=== PATIENT | male | born 1990 | race Caucasian/White ===

== ENCOUNTER 2019-06-21 15:24 | Emergency (ER) | payer OTHER, SELFPAY ==
[2019-06-21 15:26] VITALS: BP 138/97; PULSE 119; RESP 14; TEMP 36.7; O2SAT 99
--- NOTE | 2019-06-21 15:38 | ED.GENADUL_ITS ---
Discharge Plan Disposition Patient Disposition: HOME Discharge Details Chief Complaint: Orthopedic Clinical Impression: Finger fracture, left, Closed dislocation finger, proximal interphalangeal joint, traumatic Primary Care Provider: None,None ED Provider: Aleksandar Connell Home Meds and New Rx's Prescriptions: No Action No Known Home Meds RF: 0 Discharge Instructions Instructions: Finger Dislocation (ED) Additional Instructions: Please take ibuprofen over the counter. Take 600mg by mouth every 6 hours as needed for pain. Please take acetaminophen (tylenol) - 650mg every 6 hours by mouth as needed for pain. Please keep splint intact and follow-up with orthopedics. The splint will prevent you from extending your digit. You are encouraged however to flex your digit as discussed. Please contact orthopedics to arrange timely follow-up. Call tomorrow. Return to the ER for any worsening or new concerning symptoms. Referrals: Marito Akhtar MD [ [facility] STAFF PHYSICIAN] - Discharge Data Discharge Date/Time-TO BE ENTERED AT DEPARTURE: 06/21/19 17:39 Medical Decision Making <Aleksandar Connell MD - Last Filed: 06/21/19 18:27> 29-year-old male here with left fifth digit pain and deformity after jammed his finger snowboarding. X-ray of the fifth digit was reviewed and interpreted by radiology: Dislocation the proximal IP joint of the fifth digit, small fracture fragment adjacent to the head of the proximal phalanx of the fifth digit seen on lateral view. This likely represents grade 4 PIP dislocation. Patient provided verbal consent to joint reduction. Joint reduction was performed by me without complication. Patient neurovascular intact post joint reduction. Emmanuel tape and extension block splint applied. Patient was instructed to follow-up with orthopedics. <LESLIE Reynolds - Last Filed: 06/21/19 20:30> My name was entered in error to this chart. HPI <Aleksandar Connell MD - Last Filed: 06/21/19 18:27> General Mode of arrival: ambulatory . Date/Time Provider Initiated Documentation: 06/21/19 15:37 . Limitations to Documentation: no limitations . Information obtained by: patient . HPI Narrative: 29-year-old male presents with left fifth digit pain and deformity after injury snowboarding just prior to arrival. Pain is moderate and worse on palpation and with any attempted movement of the digit. No associated numbness or tingling. No other injury. Related Data Home Medications Medication Instructions Recorded Confirmed Unknown [No Known Home Meds] 06/21/19 06/21/19 Allergies Allergy/AdvReac Type Severity Reaction Status Date / Time cat dander AdvReac Intermediate hives / Unverified 06/21/19 15:30 runny nose / watery eyes <LESLIE Reynolds - Last Filed: 06/21/19 20:30> General Stated Complaint: Orthopedic OSVALDO: 3 Review of Systems <Aleksandar Connell MD - Last Filed: 06/21/19 18:27> Musculoskeletal Musculoskeletal: Reports as per HPI Neurologic Neurologic: Reports as per HPI PFSH <Aleksandar Connell MD - Last Filed: 06/21/19 18:27> Social History Smoking/Tobacco Use Status: Current-Occasional Alcohol Intake: current Alcohol Intake frequency: other Drug use: Never Substance use type: does not use Do you feel safe at home: Yes Do you feel safe in your relationship?: Yes Exam <Aleksandar Connell MD - Last Filed: 06/21/19 18:27> Const General: cooperative Orientation: alert and awake Extrem Left upper extremity: hand Details: neurosensory exam normal, tenderness Location: of the 5th digit and other (Fifth digit with hyperextension at PIP flexion at DIP deformity) <LESLIE Reynolds - Last Filed: 06/21/19 20:30> Vital Signs Vital signs: Vital Signs Temperature 36.7 C 06/21/19 15:26 Pulse 119 H 06/21/19 15:26 Respiratory Rate 14 06/21/19 15:26 Blood Pressure 138/97 H 06/21/19 15:26 Pulse Oximetry 99 06/21/19 15:26 Temperature 36.7 C 06/21/19 15:26 Temperature Source Skin 06/21/19 15:26 Pulse 119 H 06/21/19 15:26 Respiratory Rate 14 06/21/19 15:26 Respiratory Effort 06/21/19 15:30 Blood Pressure 138/97 H 06/21/19 15:26 Blood Pressure Position Sitting 06/21/19 15:26 Pulse Oximetry 99 06/21/19 15:26 Oxygen Delivery Method Room Air 06/21/19 15:26 Oxygen Flow Rate 0 06/21/19 15:26 Pain Level 6 06/21/19 15:26 Comment elevated on pillow 06/21/19 15:26 Procedures <Aleksandar Connell MD - Last Filed: 06/21/19 18:27> Orthopedic Joint Reduction Joint #1: Side: left Joint Reduction Location: finger (5th) Shoulder Technique Used (if applicable): other (traction and manipulation) Post-reduction neuro exam: intact Post-reduction vascular: intact Post Reduction X-Ray Obtained: Yes Post Reduction X-Ray Results: reduced Splint Applied: Yes Patient Tolerated Procedure: well and no complications
--- NOTE | 2019-06-21 15:49 | DI.RAD_ITS ---
EXAM: XR FINGER LT LITTLE CLINICAL HISTORY: jammed, pain TECHNIQUE: COMPARISON: No exams were available for comparison FINDINGS: Three views were obtained and show posterior dislocation of the middle phalanx from the proximal phal anx of the little finger. A small free fracture fragment is noted anterior to the head of the proxim al phalanx, probably representing volar plate avulsion of the base of middle phalanx. IMPRESSION:
--- NOTE | 2019-06-21 16:07 | DI.VRAD_ITS ---
PROCEDURE INFORMATION: Exam: XR Left Finger(s) Exam date and time: 06/21/2019 4:01 PM Age: 29 years old Clinical indication: Finger(s); Left; Patient HX: Jammed, pain TECHNIQUE: Imaging protocol: XR Left fingers. Views: Minimum 2 views. COMPARISON: No relevant prior studies available. FINDINGS: Bones/joints: Dislocation of the proximal interphalangeal joint of the fifth digit. Small fracture fragment adjacent to the head of the proximal phalanx of the fifth digit, seen on the lateral view. Donor site is likely the base of the middle phalanx. Soft tissues: Normal. IMPRESSION: Dislocation of the proximal interphalangeal joint of the fifth digit. Small fracture fragment adjacent to the head of the proximal phalanx of the fifth digit, seen on the lateral view. Donor site is likely the base of the middle phalanx. Dictated and Authenticated by: William Rodriguez MD. Ordering:MCKENZIE Huertas MD
[2019-06-21] MEDS: Acetaminophen 325 MG TAB 650 MG PO (16:18)
[2019-06-21] MEDS: Ibuprofen 600 MG TAB PO (16:19)
--- NOTE | 2019-06-21 17:06 | DI.RAD_ITS ---
EXAM: XR FINGER LT LITTLE CLINICAL HISTORY: post reduction TECHNIQUE: COMPARISON: XR FINGER LT LITTLE from 06/21/2019 FINDINGS: Three views were obtained and show reduction of the previously described PIP dislocation of the eveline r. Lateral film confirms the avulsion fracture from the volar aspect of the base middle phalanx, mod erate displacement. IMPRESSION:
--- NOTE | 2019-06-21 17:08 | DI.VRAD_ITS ---
PROCEDURE INFORMATION: Exam: XR Left Finger(s) Exam date and time: 06/21/2019 4:47 PM Age: 29 years old Clinical indication: Other: Post reduction TECHNIQUE: Imaging protocol: XR Left fingers. Views: Minimum 2 views. COMPARISON: CR XR FINGER LT LITTLE 06/21/2019 4:00 PM FINDINGS: Bones/joints: Avulsion fracture originating from the base of the middle phalanx. Soft tissues: Soft tissue edema. Other findings: Successful reduction. IMPRESSION: Successful reduction. Avulsion fracture originating from the base of the middle phalanx. Soft tissue edema. Dictated and Authenticated by: William Rodriguez MD. Ordering:MCKENZIE Huertas MD
--- NOTE | 2019-06-21 17:37 | NUR.NOTE ---
patient left without signing discharge paperwork, registration contacting patient to say that he left paper work and will alert nursing if he returns to pick it up Nursing Note:
== END 2019-06-21 17:39 | disposition home or self-care (01) ==
PROVIDERS: Emergency Provider Student in an Organized Health Care Education/Training Program
DX: S62.617A Displaced fracture of proximal phalanx of left little finger, initial encounter for closed fracture (principal); V00.318A Other snowboard accident, initial encounter; Y93.23 Activity, snow (alpine) (downhill) skiing, snowboarding, sledding, tobogganing and snow tubing
CPT/HCPCS: 26770; 73140

== ENCOUNTER 2020-02-04 16:07 | Outpatient (CLI) | payer OTHER, SELFPAY ==
[2020-02-06 06:24] LABS: Patient Race White; SARS-CoV-2 RNA Undetected (Undetected); SARS-CoV-2 Specimen Source Nasopharynx
== END 2020-02-04 16:27 ==
PROVIDERS: Visit Provider Family Medicine
DX: Z11.59 Encounter for screening for other viral diseases (principal)
CPT/HCPCS: U0003

== ENCOUNTER 2021-08-16 17:47 | Emergency (ER) | payer OTHER, SELFPAY ==
[2021-08-16] VITALS (12 sets, daily range): BP systolic 124–137; BP diastolic 82–87; PULSE 61–78; RESP 14–16; TEMP 36–36.3; O2SAT 98
--- NOTE | 2021-08-16 17:45 | RT.EKG_ITS ---
APPROVED REPORT Exam: Resting ECG Reason for Exam: Chest Pain Patient Location: E HR:71 bpm ECG Measurements Heart Rate 71 AXIS WA 144 P 94 QRSd 91 QRS 52 QT 392 T 43 QTc 426 Conclusion Sinus rhythm...normal P axis, V-rate 60- 99 Left atrial enlargement...P, P'>60mS, <-0.15mV V1. Sinus. No acute ST depressions noted. No STEMI. I have reviewed and interpreted ECG and agree with software generated interpretation.
--- NOTE | 2021-08-16 18:00 | DI.RAD_ITS ---
Exam(s) XR CHEST 2V PA LATERAL EXAM: XR CHEST 2V PA LATERAL CLINICAL HISTORY: Left Arm, chest pain TECHNIQUE: 2D digital imaging was performed. COMPARISON: No exams were available for comparison FINDINGS: MEDIASTINUM: Normal. HEART: Normal. PULMONARY VASCULATURE: Normal. LUNGS: Clear. PLEURAL SPACE: No pleural effusion or pneumothorax. BONE:Unremarkable for age. IMPRESSION: No acute abnormality. DATA REPOSITORY: RADIATION DOSE DELIVERED:
--- NOTE | 2021-08-16 18:13 | ED.GENADUL_ITS ---
Discharge Plan Disposition Patient Disposition: HOME Condition: Improving Discharge Details Clinical Impression: Anxiety, Arm pain, left Primary Care Provider: None,None ED Provider: Fallon Murcia Home Meds and New Rx's Prescriptions: New lorazepam 0.5 mg tablet 0.5 mg PO DAILY PRN (Reason: anxiety) Qty: 5 0RF Discharge Instructions Instructions: Anxiety (ED) Additional Instructions: At this time cardiac work-up is within normal limits. No evidence for heart attack. Chest x-ray is also within normal limits no pleural effusion, pneumonia or anything abnormal. Take medication as directed if you continue to have symptoms after taking the medication please return to the ER or be seen at urgent care or similar. Follow up with primary care provider in 3-5 days. Return to ED sooner if any worsening chest pain, vomiting, fever or concerns. Increase oral fluids. Please take Tylenol or Ibuprofen with food every 4-6 hours as needed for pain and swelling. Please consider decreasing smoking and drinking if possible. This will increase anxiety. You are placed on a care management list to help establish you with your PCP. You should be hearing from them. Medical Decision Making 30-year-old male presents to the ER with chief complaint of left arm tingling, fullness which radiates up to his upper arm, head fullness, nausea and bilateral ear pain. He reports that this began around 8 AM this morning. She does have a history of anxiety and panic attacks. He is a daily smoker. She denies any cough, shortness of breath or productive cough. He denies any injuries. He does endorse 4-5 drinks a week of alcohol. Denies any illicit drugs. EKG was reviewed by Leana Heath MD ER attending, please see her official report for review, old EKG available for review. No appreciable change by myself. Please see her official report. Work-up ordered including CBC, CMP, troponin, chest x-ray, aspirin 324 and 0.5 mg lorazepam. I do suspect this is noncardiac in nature however will rule out. Imaging protocol: XR of the chest. Views: 2 views. COMPARISON: No relevant prior studies available. FINDINGS: Lungs: No consolidation. Pleural spaces: No pleural effusion. No pneumothorax. Heart/Mediastinum: No cardiomegaly. Bones/joints: No acute fracture. IMPRESSION: Normal. CBC CMP largely within normal limit initial troponin less than 50. Potassium slightly low at 3.4. Will give 20 mEq p.o. here in the department and instructed on increasing foods with potassium with patient. Upon reevaluation he reports feeling much better after the Ativan and reports that his symptoms are now gone. I did give him 3 tablets of 0.5 mg of lorazepam to go and prescription was 4 tablets. I did discuss follow-up with PCP and or therapy to discuss his anxiety. He verbalizes understanding and is in agreement with plan. I did explain the the lorazepam is highly addictive and discussed safe med practices. Patient was placed on a care management list to establish PCP. He remained hemodynamically stable alert and oriented throughout the remainder of his stay. This text was generated using [employer] dictation system, please disregard any oddities of phrase or misspellings. HPI General Mode of arrival: ambulatory . Date/Time Provider Initiated Documentation: 08/16/21 17:50 . Limitations to Documentation: no limitations . Information obtained by: patient, RN notes reviewed and old records reviewed . HPI Narrative: 30-year-old male presents to the ER with chief complaint of left arm tingling, fullness which radiates up to his upper arm, head fullness, nausea and bilateral ear pain. He reports that this began around 8 AM this morning. She does have a history of anxiety and panic attacks. He is a daily smoker. She denies any cough, shortness of breath or productive cough. He denies any injuries. He does endorse 4-5 drinks a week of alcohol. Denies any illicit drugs. Related Data Home Medications Medication Instructions Recorded Confirmed lorazepam 0.5 mg tablet 0.5 mg PO DAILY PRN #5 tab 08/16/21 Previous Rx's Medication Instructions Recorded lorazepam 0.5 mg tablet 0.5 mg PO DAILY PRN #5 tab 08/16/21 Allergies Allergy/AdvReac Type Severity Reaction Status Date / Time cat dander AdvReac Intermediate hives / Unverified 08/16/21 18:02 runny nose / watery eyes General Stated Complaint: Chest Pain OSVALDO: 2 Review of Systems All systems reviewed & are unremarkable except as noted in HPI and below ENT Ears, Nose, Mouth, and Throat: Reports as per HPI Cardiovascular Cardiovascular: Reports radiating jaw, neck or arm pain PFSH All Active Problems (Updated 08/16/21 @ 20:02 by Fallon Murcia) Finger fracture, left (Acute) Closed dislocation finger, proximal interphalangeal joint, traumatic (Acute) Anxiety (Chronic) Arm pain, left (Acute) Social History Smoking/Tobacco Use Status: Current-Occasional Tobacco Type: cigarettes Smoking risk assessment performed?: Yes Alcohol Intake: current Alcohol Intake frequency: a few times a week Drug use: Never Substance use type: does not use Do you feel safe at home: Yes Do you feel safe in your relationship?: Yes Exam Narrative Exam Narrative: Constitutional: Alert and oriented x3. Appears stated age. Normal body habitus. Head: Normocephalic, no trauma. Eyes: Pupils PERRL, Red reflex noted, EOM's intact. Eyelids symmetrical without lesions, discharge, or swelling. ENT: Bilateral TM's WNL, External ear normal to inspection, no mastoid TTP, swelling, or erythema, Nasal turbinates WNL, no nasal discharge. Normal dentition, Posterior pharynx WNL, no exudate. Chest: RRR, Normal S1, S2, distal pulses intact. Resp: Lungs clear to auscultation bilaterally, no wheezes, rales, or rhonchi. Abdomen: Soft, non-distended, Normoactive bowel sounds all 4 quads. Musculoskeletal: Normal gait, 5/5 strength to all four extremities. Skin: No suspicious rashes or lesions. Capillary refill less than 2 sec. Neurologic: Cranial nerves II-XII intact. Alert and oriented x 3. Motor: No deficits noted. Sensory: Intact bilaterally all 4 extremities. Reflexes: DTR's intact bilaterally.. Hematologic/Lymphatic: No ecchymosis, no lymphadenopathy. Course Vital Signs Vital signs: Vital Signs Temperature 36.3 C L 08/16/21 17:49 Pulse 78 08/16/21 17:49 Respiratory Rate 16 08/16/21 17:49 Blood Pressure 137/82 08/16/21 17:49 Pulse Oximetry 98 08/16/21 17:49 Temperature 36.3 C L 08/16/21 17:49 Temperature Source Skin 08/16/21 17:49 Pulse 78 08/16/21 17:49 Respiratory Rate 16 08/16/21 18:05 Respiratory Effort Non-Labored 08/16/21 18:05 Blood Pressure 137/82 03/27/22 17:49 Blood Pressure Position Sitting 08/16/21 17:49 Pulse Oximetry 98 08/16/21 17:49 Oxygen Delivery Method Room Air 08/16/21 17:49 Oxygen Flow Rate 0 08/16/21 17:49 Pain Level 5 08/16/21 17:49 PAWSS Have you Been Recently Intoxicated or Drunk Within the Last 30 days?: Yes Have you Ever Experienced Previous Episodes of Alcohol Withdrawal?: No Have you ever Experienced Withdrawal Seizures?: No Have you ever Experienced Delirium Tremens(DT)s?: No Have you ever undergone Alcohol Rehabilitation Treatment (i.e, inpt ot outpatient treatment programs)?: No Have you ever Experienced Blackouts?: Yes Have you ever Combined Alcohol with other Downers within the last 90 days?: No Have you ever Combined Alcohol with any other Substance of Abuse during the last 90 days?: No Positive Blood Alcohol level on Presentation? [PCS.BAL]: No Evidence of Increased Autonomic Activity (i.e. HR>120, tremor, sweating, agitation, nausea)?: No Result: 2
[2021-08-16] MEDS: Aspirin 81 MG CHEW 324 MG CH (18:19)
[2021-08-16] MEDS: LORazepam 0.5 MG TAB PO (18:19)
--- NOTE | 2021-08-16 19:29 | DI.VRAD_ITS ---
PROCEDURE INFORMATION: Exam: XR Chest Exam date and time: 08/16/2021 18:53 Age: 31 years old Clinical indication: Other: Left chest pain TECHNIQUE: Imaging protocol: XR of the chest. Views: 2 views. COMPARISON: No relevant prior studies available. FINDINGS: Lungs: No consolidation. Pleural spaces: No pleural effusion. No pneumothorax. Heart/Mediastinum: No cardiomegaly. Bones/joints: No acute fracture. IMPRESSION: Normal. Dictated and Authenticated by: Anne Morris MD. Ordering:JENARO Lehman MD
[2021-08-16 19:32] LABS: Abs Immature Grans 0.01 10^3/uL (0.0-0.06); Absolute Basophil Count 0.05 10^3/uL (0.0-0.2); Absolute Eosinophil Count 0.15 10^3/uL (0.0-0.7); Absolute Lymphocyte Count 2.02 10^3/uL (1.2-3.4); Absolute Monocyte Count 0.57 10^3/uL (0.1-0.8); Absolute Neutrophil Count 4.51 10^3/uL (1.2-6.7); Basophils % 0.7; Eosinophils % 2.1; HGB 14.9 g/dL (13.5-17.5); Immature Grans % 0.1; Lymphocytes % 27.6; MCH 31.7 pg (27.0-33.0); MCHC 33.9 % (32.0-36.0); MCV 93.6 fL (80-95); MPV 10.1 fL (8.0-11.0); Monocytes % 7.8; Neutrophils % 61.7; Nucleated RBC 0 %; Platelet Count 189 10^3/uL (130-400); RDW 11.4 % (11.8-14.1); WBC 7.31 10^3/uL (4.4-10.8)
--- NOTE | 2021-08-16 19:40 | NUR.NOTE ---
referral to Care Management to establish pcp for anxiety, f/u ezio.Nursing Note:
[2021-08-16 19:48] LABS: ALT 35 U/L (16-63); AST 19 U/L (15-37); Alkaline Phosphatase 71 U/L (46-116); Anion Gap 11.3 mmol/L (3-11); BUN 16 mg/dL (7-18); Bilirubin, Total 0.7 mg/dL (0.2-1.0); CO2 24.7 mmol/L (21.0-32.0); CREATININE 1.2 mg/dL (0.70-1.30); Calcium 8.6 mg/dL (8.5-10.1); Chloride 103 mmol/L (98-107); Glucose 99 mg/dL (74-106); Magnesium 2.1 mg/dL (1.8-2.4); Potassium 3.4 mmol/L (3.5-5.1); Sodium 139 mmol/L (136-145); Total Protein 7.5 g/dL (6.4-8.2); Troponin I < 50 ng/L (<or=60)
[2021-08-16] MEDS: Potassium Chloride 20 MEQ TABCR PO (20:30)
[2021-08-16] MEDS: LORazepam 0.5 MG TAB 1.5 MG PO (20:31)
--- NOTE | 2021-08-17 11:05 | PDOC.ERCMACT ---
- If Service Date Differs Date of service: 08/17/21 Time of Service: 11:05 Care Management Activity Note Ba is seen in the ED for left arm pain and anxiety. At the request of ED provider, CM coordinates a referral to Vanita Rob MD, of [facility], on-call provider, to assist patient in establishing care with a PCP.
== END 2021-08-16 20:45 | disposition home or self-care (01) ==
PROVIDERS: Emergency Provider Registered Nurse Emergency
DX: F41.9 Anxiety disorder, unspecified (principal); R11.0 Nausea; M79.602 Pain in left arm; R07.9 Chest pain, unspecified; E87.6 Hypokalemia
CPT/HCPCS: 36415; 80053; 93005; 99284; 71046; 83735; 84484; 85025; 93010; 99283

== ENCOUNTER 2021-09-15 13:03 | Emergency (ER) | payer OTHER, SELFPAY ==
[2021-09-15 13:08] VITALS: BP 134/80; PULSE 85; RESP 16; TEMP 36.5
--- NOTE | 2021-09-15 13:36 | W.ED.GENAD ---
Discharge Plan Disposition Patient Disposition: HOME Condition: Improving Discharge Details Clinical Impression: Medication side effects Primary Care Provider: Wayne Kingsley ED Provider: Oscar Pires Home Meds and New Rx's Prescriptions: New alprazolam [Xanax] 0.25 mg tablet 0.25 mg PO BID PRN (Reason: anxiety) Qty: 5 0RF Discontinued bupropion HCl [Wellbutrin SR] 150 mg tablet sustained-release 12 hr 300 mg PO BID 0RF Rx Instructions: Take one tablet daily for 3 days then take one tablet twice daily thereafter. Discharge Instructions Instructions: Anxiety (ED) Additional Instructions: I recommend you reduce your bupropion to 150 mg daily and then discuss further cessation with your prescribing provider. You may use the provided Xanax if needed for anxiety. No alcohol or driving with this medication. Home to rest today. Stand Alone Forms: Work Release Medical Decision Making This is a 31-year-old male who presents with concern for drug reaction. He has been recently started on Wellbutrin to help with both tobacco abuse and depression. He started 150 mg daily for 3 days and now has been taking 300 mg daily for approximately 7 days. He feels slight jitteriness and shakiness. He felt like his heart rate was elevated and that he was diaphoretic. He did not have chest pain or shortness of breath and is otherwise physically been well. He has no thoughts of harming himself or others and feels his mood is improving. Patient is well-appearing, he is not hypertensive or tachycardic and his exam is reassuring. There is a high likelihood of side effects due to the SSRI. Discussed with him decreasing to 150 mg and discussing further cessation of the medication with his prescribing physician. I will offer him a small number of Xanax to ease his anxious mood. He is stable and appropriate for discharge at this time. HPI General Mode of arrival: ambulatory. Date/Time Provider Initiated Documentation: 09/15/21 13:04. Limitations to Documentation: no limitations. Information obtained by: patient. History of Present Illness 31 year old M presents to the emergency department with the chief complaint of Feeling jittery, question SSRI reaction, described as moderate, Patient started experiencing this day(s) and it has been constant. improves with No relieving factors improve symptom(s), No exacerbating factors reported . Patient notes diaphoresis; denies fever/chills, headaches, syncope and weakness. Patient did receive the following treatments prior to arrival, none Related Data Home Medications Medication Instructions Recorded Confirmed alprazolam 0.25 mg tablet (Xanax) 0.25 mg PO BID PRN #5 tab 09/15/21 Previous Rx's Medication Instructions Recorded alprazolam 0.25 mg tablet (Xanax) 0.25 mg PO BID PRN #5 tab 09/15/21 Allergies Allergy/AdvReac Type Severity Reaction Status Date / Time cat dander AdvReac Intermediate hives / Unverified 09/15/21 13:12 runny nose / watery eyes General Stated Complaint: Allergic OSVALDO: 3 Review of Systems Narrative: No thoughts of harming himself or others, currently not using illicit substances. No chest pain or shortness of breath. 8 systems reviewed and otherwise negative PFSH All Active Problems (Updated 09/15/21 @ 13:39 by Oscar Pires MD) Medication side effects (Acute) Attention deficit (Acute) Depression with anxiety (Acute) Snoring (Acute) Alcoholism (Acute) Substance abuse (Acute) LSD, mushrooms, percocets Depression (Chronic) Finger fracture, left (Acute) Closed dislocation finger, proximal interphalangeal joint, traumatic (Acute) Anxiety (Chronic) Arm pain, left (Acute) Family History Mother Sleep apnea Uncle Heart disease Maternal Grandfather Heart disease Social History Smoking/Tobacco Use Status: Current-Occasional Tobacco Type: cigarettes Tobacco: How many years used: 15 Quit status: considering quitting Second Hand Exposure: Yes Smoking risk assessment performed?: Yes Alcohol Intake: current Alcohol Intake frequency: a few times a week Alcohol type: beer Drug use: Occasionally Substance use type: hallucinogens Household members: none Communication Needs: None What is your relationship status?: How often do you talk on the phone with friends or family?: once per week How often do you get together with friends or relatives?: once per week How often do you attend worship or gnosticist services?: decline to answer Do you belong to any clubs or organized social groups?: no Panel score (0-1 are the most socially isolated patients): 0 What type of physical activity do you participate in: walking, bicycling and weight lifting Domenica/Worship: Christianity Do you feel safe at home: Yes Do you feel safe in your relationship?: Yes Exam Narrative Exam Narrative: GEN: awake, alert, oriented 3. Pleasant, well groomed, interactive. HEAD: Normocephalic, atraumatic ENT: Mucous membranes moist, oropharynx unremarkable, External ear exam unremarkable EYES: PERRL, EOMI NECK: Full ROM, no PEGGY, no menigismus CHEST/RESP: Nontender, clear to auscultation bilateral, no wheeze/rhonchi/rales CARDIOVASCULAR: RRR, no murmur, rub kourtney. 2+ Rad pulse bilateral ABDOMEN: Soft, nontender, no mass. +Bowel sounds EXT: Full ROM, no edema, no rash Neuro: Grossly normal neurologic exam, conversant, interactive. Psych: Speech fluent, thoughts congruent, affect slightly anxious Course Vital Signs Vital signs: Vital Signs Temperature 36.5 C 09/15/21 13:08 Pulse 85 09/15/21 13:08 Respiratory Rate 16 09/15/21 13:08 Blood Pressure 134/80 09/15/21 13:08 Temperature 36.5 C 09/15/21 13:08 Pulse 85 09/15/21 13:08 Respiratory Rate 16 09/15/21 13:08 Respiratory Effort 09/15/21 13:20 Respiratory Pattern Normal 09/15/21 13:20 Blood Pressure 134/80 09/15/21 13:08 PAWSS Have you Been Recently Intoxicated or Drunk Within the Last 30 days?: Yes Have you Ever Experienced Previous Episodes of Alcohol Withdrawal?: No Have you ever Experienced Withdrawal Seizures?: No Have you ever Experienced Delirium Tremens(DT)s?: No Have you ever undergone Alcohol Rehabilitation Treatment (i.e, inpt ot outpatient treatment programs)?: No Have you ever Experienced Blackouts?: No Have you ever Combined Alcohol with other Downers within the last 90 days?: No Have you ever Combined Alcohol with any other Substance of Abuse during the last 90 days?: Yes Positive Blood Alcohol level on Presentation? [PCS.BAL]: No Evidence of Increased Autonomic Activity (i.e. HR>120, tremor, sweating, agitation, nausea)?: No Result: 3
[2021-09-15 14:05] VITALS: BP 134/80; PULSE 85; RESP 16; TEMP 36.5
== END 2021-09-15 14:20 | disposition home or self-care (01) ==
PROVIDERS: Emergency Provider Emergency Medicine; PCP Nurse Practitioner Family
DX: R06.02 Shortness of breath (principal); R25.8 Other abnormal involuntary movements; T43.295A Adverse effect of other antidepressants, initial encounter
CPT/HCPCS: 99283

== ENCOUNTER 2024-02-24 14:10 | Outpatient (REF) | payer BC, SELFPAY ==
[2024-02-24 21:40] LABS: Hemoglobin A1C 5.2 % (<5.7)
[2024-02-24 21:54] LABS: Calculated LDL 125 mg/dL (<100); Cholesterol 204 mg/dL (<200); HDL Cholesterol 59 mg/dL (40-60); Triglyceride 100 mg/dL (<150)
[2024-02-27 09:27] LABS: PSA, Screening 0.2 ng/mL (<=2.5)
== END 2024-02-24 14:11 | disposition home or self-care (01) ==
LOC: LBN 14:10
PROVIDERS: PCP Nurse Practitioner Family; Visit Provider Nurse Practitioner Family
DX: Z13.220 Encounter for screening for lipoid disorders (principal); Z12.5 Encounter for screening for malignant neoplasm of prostate; Z13.1 Encounter for screening for diabetes mellitus
CPT/HCPCS: 80061; 84153; 83036